=== PATIENT | male | born 1985 | race African-American/Black ===

== ENCOUNTER 2018-06-19 07:31 | Emergency (ER) | payer BC ==
[2018-06-19 07:38] VITALS: BMI 21.2
[2018-06-19] MEDS ORDERED: SODIUM CHLORIDE 1,000 ML IV STA (07:55)
[2018-06-19] MEDS ORDERED: ONDANSETRON 4 MG/2 ML VIAL IVPUSH ONE (07:55)
[2018-06-19] MEDS ORDERED: ACETAMINOPHEN 1000 MG/100 ML VIAL (NON FORMULARY) IVPB ONE (08:15)
--- NOTE | 2018-06-19 08:15 | PDOC ---
History of Present Illness - General Chief Complaint: Pain Stated Complaint: ABDOMINAL PAIN Time Seen by Provider: 06/19/18 07:53 - History of Present Illness Initial Comments: 06/19/18 08:10 33m with no pmh presents to the ED with abdominal pain, vomiting and diarrhea since 8pm last night. He said he ate some mac and cheese at lunch that taste funny and started feeling off later that day. He went to bathroom when he felt abdominal pain and started vomiting throughout the night. Didn't take any medication. Managed to take some sip of water. Son was sick last week with walking pneumonia. Past History - Past Medical History Allergies/Adverse Reactions: Allergies Allergy/AdvReac Type Severity Reaction Status Date / Time No Known Allergies Allergy Verified 06/19/18 07:39 Home Medications: Ambulatory Orders No Home Medications 0 dose .ROUTE UTDICT 12/17/11 COPD: No - Suicide/Smoking/Psychosocial Hx Smoking Status: No Smoking History: Never smoked Number of Cigarettes Smoked Daily: 0 Hx Alcohol Use: No Drug/Substance Use Hx: No Review of Systems - Review of Systems Able to Perform ROS?: Yes Is the patient limited Greek proficient: No Constitutional: No: Symptoms Reported HEENTM: No: Symptoms Reported Respiratory: No: Symptoms reported Cardiac (ROS): No: Symptoms Reported ABD/GI: Yes: See HPI Musculoskeletal: No: Symptoms Reported Integumentary: No: Symptoms Reported Neurological: No: Symptoms reported All Other Systems: Reviewed and Negative *Physical Exam - Vital Signs Last Vital Signs Temp Pulse Resp BP Pulse Ox 98.6 F 121 H 20 115/70 98 06/19/18 07:36 06/19/18 07:36 06/19/18 07:36 06/19/18 07:36 06/19/18 07:36 - Physical Exam General Appearance: Yes: Nourished, Appropriately Dressed. No: Apparent Distress HEENT: positive: EOMI, ARTIE, Normal ENT Inspection Respiratory/Chest: positive: Lungs Clear, Normal Breath Sounds. negative: Chest Tender, Respiratory Distress Cardiovascular: positive: Regular Rhythm, S1, S2, Tachycardia Gastrointestinal/Abdominal: positive: Normal Bowel Sounds, Tender (diffusely), Flat, Soft Musculoskeletal: positive: Normal Inspection. negative: CVA Tenderness Extremity: positive: Normal Capillary Refill, Normal Inspection, Normal Range of Motion Neurologic: positive: Fully Oriented, Alert, Normal Mood/Affect, Normal Response Moderate Sedation - Procedure Monitoring Vital Signs: Procedure Monitoring Vital Signs Temperature 98.6 F 06/19/18 07:36 Pulse Rate 121 H 06/19/18 07:36 Respiratory Rate 20 06/19/18 07:36 Blood Pressure 115/70 06/19/18 07:36 O2 Sat by Pulse Oximetry (%) 98 06/19/18 07:36 ED Treatment Course - LABORATORY CBC & Chemistry Diagram: 06/19/18 08:43 06/19/18 08:43 Medical Decision Making - Medical Decision Making 06/19/18 10:39 Likely gastroenteritis vs food poisoning vs cholecystitis/colic. will get labs, rehydrate, tylenol. Slight hemolysis however positive LDH and bili. 06/19/18 13:00 Negative gallbladder U/S. Ok to discharge with return precautions. 06/19/18 13:32 PO challenge successful *DC/Admit/Observation/Transfer Diagnosis at time of Disposition: Food poisoning - Discharge Dispostion Disposition: HOME Condition at time of disposition: Improved Decision to Admit order: No - Referrals - Patient Instructions Printed Discharge Instructions: How to Avoid Food Poisoning, DI for Food Poisoning Additional Instructions: Rehydrate yourself well. Come back to the emergency department for any new , worsening or concerning symptoms. - Post Discharge Activity
--- NOTE | 2018-06-19 08:23 | PDOC ---
Attending Attestation - Resident Resident Name: MoralesMack - ED Attending Attestation I have performed the following: I have examined & evaluated the patient, The case was reviewed & discussed with the resident, I agree w/resident's findings & plan, Exceptions are as noted - HPI HPI: 06/19/18 08:49 33y M no pmhx presents with abdominal pain since last night. Pt notes he was fine i the morning, until approx 9pm when he started having periumbilical/ epigastric cramping associated with 3 episodes of nbnb vomiting since last night , he also had 3 episodes of loose watery diarrhea. pt denies any fever/chills, dysuria, hematuria, melena, bpr. no known sick contacts but note he ate at the cafeteria last night and it tasted funny. No recent travel. GENERAL: The patient is awake, alert, and fully oriented, Nontoxic - in no acute distress. ENT: Moist mucous membranes. LUNGS: Breath sounds equal, clear to auscultation bilaterally. No wheezes, no rhonchi, no rales. HEART: tachycardic, normal S1 and S2 without murmur, rub or gallop. ABDOMEN: Soft, mild diffuse tenderness, No guarding, no rebound. . No CVA tenderness EXTREMITIES: Normal range of motion, no edema. NEUROLOGICAL: No facial assymetry, Normal speech, PSYCH: Normal mood, normal affect. SKIN: Warm, Dry, normal turgor, A&P - suspect acute gastroenteritis, no focal tenderness to suggest acute peritonitis The patient is noted tachycardic we'll give the patient some fluids for hydration will check labs and treat supportively cristian reassess - Physicial Exam PE: 06/20/18 19:47 see above - Medical Decision Making 06/19/18 10:54 The patient's labs were reviewed there were notable for elevated T bilirubin we' ll obtain a ru quadrant ultrasound to rule out gall bladder disease 06/19/18 12:54 pt feeling improved tolerated oral intake US neg for pathology hr improved suspecg actue gastroenteritis will dc with pmd fu return precuations were discussed
[2018-06-19] MEDS ORDERED: ACETAMINOPHEN INJECTION 100 ML IVPB ONE (08:33)
[2018-06-19] MEDS ORDERED: ONDANSETRON 4 MG/2 ML VIAL ONE (08:33)
[2018-06-19 09:17] LABS: URINE APPEARANCE CLEAR; URINE BILIRUBIN NEGATIVE (<2.0 mg/dL); URINE COLOR YELLOW; URINE GLUCOSE (UA) NEGATIVE (NEGATIVE); URINE KETONE 1+ (NEGATIVE); URINE LEUK ESTERASE NEGATIVE (NEGATIVE); URINE NITRITE NEGATIVE (NEGATIVE); URINE PROTEIN NEGATIVE (NEGATIVE); URINE UROBILINOGEN NEGATIVE mg/dL (0.2-1.0)
[2018-06-19 09:19] LABS: BASO % 0.2 % (0-2.0); EOS % 0.1 % (0-4.5); HEMOGLOBIN 16.6 GM/dL (11.7-16.9); LYMPH % 4.9 % (8-40); MCH 33.1 pg (25.7-33.7); MCHC 35.2 g/dl (32.0-35.9); MEAN CELL VOLUME 93.9 fl (80-96); MEAN PLT VOLUME 9.3 fl (7.5-11.1); MONO % 6.7 % (3.8-10.2); NEUT % 88.1 % (42.8-82.8); PLATELET COUNT 207 K/MM3 (134-434); RDW 13.7 % (11.9-15.9); WHITE BLOOD COUNT 7.4 K/mm3 (4.0-10.0)
[2018-06-19 09:37] LABS: URINE MUCUS MODERATE
[2018-06-19 10:16] LABS: ALBUMIN 4.3 g/dl (3.4-5.0); ALK PHOS 78 U/L (45-117); ANION GAP 7 MMOL/L (8-16); BILIRUBIN,TOTAL 2.3 mg/dL (0.2-1); BLOOD UREA NITROGEN 17 mg/dL (7-18); CALCIUM 9.2 mg/dL (8.5-10.1); CHLORIDE 102 mmol/L (98-107); CO2 28 mmol/L (21-32); CREATININE 1.1 mg/dL (0.55-1.3); GLUCOSE,RANDOM 89 mg/dL (74-106); LDH 325 U/L (87-246); LIPASE 115 U/L (73-393); POTASSIUM 4.4 mmol/L (3.5-5.1); SGOT/AST 22 U/L (15-37); SGPT/ALT 42 U/L (13-61); SODIUM 136 mmol/L (136-145); TOT PROT 10.1 g/dl (6.4-8.2)
[2018-06-19 14:17] VITALS: BP 125/62; PULSE 85; TEMP 98.1
== END 2018-06-19 13:38 | disposition home or self-care (01) ==
LOC: JER 07:31
PROC: 3E033GC Introduction of Other Therapeutic Substance into Peripheral Vein, Percutaneous Approach (ICD-10-PCS; principal; 2018-06-19)
PROC: 3E033NZ Introduction of Analgesics, Hypnotics, Sedatives into Peripheral Vein, Percutaneous Approach (ICD-10-PCS; 2018-06-19)
DX: T62.8X1A Toxic effect of other specified noxious substances eaten as food, accidental (unintentional), initial encounter (principal); R11.10 Vomiting, unspecified; Y92.89 Other specified places as the place of occurrence of the external cause
CPT/HCPCS: 36415; 76705-TC; 80053; 81003; 81015; 83615; 83690; 85025; 87086; 99283-25; J0131; J7030

== ENCOUNTER 2021-04-10 09:20 | Emergency (ER) | payer BC ==
[2021-04-10 09:58] VITALS: BP 138/89; PULSE 89; TEMP 98.9; BMI 23.6
== END 2021-04-10 11:54 | disposition home or self-care (01) ==
LOC: JER 09:20
DX: J06.9 Acute upper respiratory infection, unspecified (principal); Z11.52 Encounter for screening for COVID-19
CPT/HCPCS: 87804; 99283-25; C9803; U0003; U0005

== ENCOUNTER 2021-07-14 09:37 | Emergency (ER) | payer BC ==
[2021-07-14 09:47] VITALS: BP 141/93; PULSE 93; TEMP 97.8; BMI 23.5
[2021-07-14] MEDS ORDERED: KETOROLAC TROMETHAMINE 60 MG/2 ML VIAL IM ONE (10:11)
[2021-07-14] MEDS ORDERED: KETOROLAC TROMETHAMINE 60 MG/2 ML VIAL ONE (10:16)
== END 2021-07-14 11:51 | disposition home or self-care (01) ==
LOC: JER 09:37
PROC: 3E0233Z Introduction of Anti-inflammatory into Muscle, Percutaneous Approach (ICD-10-PCS; principal; 2021-07-14)
DX: S00.83XA Contusion of other part of head, initial encounter (principal); S09.90XA Unspecified injury of head, initial encounter; W22.8XXA Striking against or struck by other objects, initial encounter; Y92.838 Other recreation area as the place of occurrence of the external cause
CPT/HCPCS: 70450-TC; 99284-25

== ENCOUNTER 2022-11-25 00:47 | Emergency (ER) | payer BC ==
[2022-11-25 00:54] VITALS: BP 120/77; PULSE 95; RESP 18; TEMP 97.8; BMI 22.8
== END 2022-11-25 01:35 | disposition home or self-care (01) ==
LOC: JER 00:47
DX: H93.8X2 Other specified disorders of left ear (principal)
CPT/HCPCS: 99282-25

== ENCOUNTER 2024-04-15 16:24 | Emergency (ER) | payer BC ==
[2024-04-15 16:37] VITALS: BMI 23.6
[2024-04-15] MEDS ORDERED: ACETAMINOPHEN 500 MG TABLET (FP) ONE (17:54)
[2024-04-15] MEDS: ACETAMINOPHEN 325 MG TABLET (FP) PO ONE (17:58)
[2024-04-15 19:12] VITALS: BP 107/73; PULSE 108; RESP 16; TEMP 100.2
== END 2024-04-15 19:15 | disposition home or self-care (01) ==
LOC: FER 16:24
DX: J10.1 Influenza due to other identified influenza virus with other respiratory manifestations (principal); R50.9 Fever, unspecified; R09.89 Other specified symptoms and signs involving the circulatory and respiratory systems; M79.10 Myalgia, unspecified site; R05.9 Cough, unspecified; R00.0 Tachycardia, unspecified; Z20.822 Contact with and (suspected) exposure to COVID-19
CPT/HCPCS: 0241U-QW; 99283-25